=== PATIENT | female | born 2000 | race Hispanic/Latino ===

== ENCOUNTER → 2025-06-13 08:32 | Outpatient (CLI) | payer OTHER, SELFPAY ==
[2025-06-13 10:28] LABS: Glucose Fasting Gestational 78 mg/dL (76-95)
[2025-06-13 11:21] LABS: Glucose 1 Hour Gest 132 mg/dL (76-180)
[2025-06-13 12:02] LABS: Glucose Tol Interp,Gestational INTERPRETATION
[2025-06-13 12:38] LABS: Glucose 2 Hour Gest 144 mg/dL (76-155)
[2025-06-13 12:39] LABS: Glucose 3 Hour Gest 138 mg/dL (76-140)
== END ==
PROVIDERS: PCP Family Medicine; Referring Provider Family Medicine; Visit Provider Family Medicine
DX: O30.001 Twin pregnancy, unspecified number of placenta and unspecified number of amniotic sacs, first trimester (principal); R73.09 Other abnormal glucose; R73.03 Prediabetes
CPT/HCPCS: 36415; 82951; 82952

== ENCOUNTER → 2025-06-27 13:46 | Outpatient (CLI) | payer OTHER, SELFPAY ==
[2025-06-27 15:53] LABS: Natera Collection Specimen Collected
--- NOTE | 2025-06-27 16:44 | DIET.OUTPTC ---
Dietary Outpatient Consult Consult Date:06/27/25 Assessment:?24 y F referred to dietitian for prediabetes, twin , obesity Presents to learn more about creating balanced meals and getting enough nutrients from diet. Has been having night time nausea. Helpful to always keep stomach full. Will do 2 saltine crackers between meals. Difficult time with nothing sounding good. Lost 10 lb since last doctors appt. GI symptoms: denies D/C, BM daily Diet Recall: B-bagel and cream cheese saltines L-bagel and cream cheese D-6 oz meat/pork, veggies, 2/3 c starch, [address] ancelmo saltines and cheese Fluids: water, got apple cider recently doing 1/2 c in morning Activity:wants to walk dog daily Pertinent Labs:5.6% A1c, normal GTT Nutrition Diagnosis:? Food and nutrient related knowledge deficit r/t limited previous formal educ, new with twins aeb presents to learn about preventing GDM and creating nutrient dense meals Increased nutrient needs (protein/folic acid/iron) r/t increased demand for nutrient aeb with twins Interventions:? Discussed and provided appropriate resources on the following: -Carb consistent meals using the plate method, common measurements, briefly reviewed CHO counting and label reading based on pt interest -Importance of pairing with protein and fiber -Eating snacks -Reducing sugar sweetened beverages -Activity as tolerated Goals: -Add protein source to breakfast: ex- nut butter or 1/2 to whole [employer] protein shake -Add 1-2 snacks in daily between lunch/dinner - i.e. plain italian yogurt (pt's preference)+ 1/4 c granola + 1/2c to 1 cup fruit or olives and cheese -Reduce dr pepper to 1-2x/wk and sub with sparkling water -Walk with dog 3x/wk EER:? 16-18 CHO servings (40% kcals) Monitoring/Evaluations:? F/u in 4-6 wks Electronically Signed by: Karyna Singh Clinical Dietitian [address] [id number]
== END ==
LOC: DIET 13:48
PROVIDERS: PCP Family Medicine; Referring Provider Family Medicine
DX: O30.009 Twin pregnancy, unspecified number of placenta and unspecified number of amniotic sacs, unspecified trimester (principal); R73.03 Prediabetes; O99.210 Obesity complicating pregnancy, unspecified trimester; E66.9 Obesity, unspecified; Z71.3 Dietary counseling and surveillance
CPT/HCPCS: 36415

== ENCOUNTER → 2025-07-30 13:04 | Outpatient (CLI) | payer OTHER, SELFPAY ==
[2025-07-30 13:55] LABS: COVID-19 CEPHEID 4-PLEX PCR Negative (Negative); Influenza A - CEPHEID Flu A NEGATIVE (NEGATIVE); Influenza B - CEPHEID Flu B NEGATIVE (NEGATIVE)
== END ==
PROVIDERS: PCP Family Medicine; Visit Provider Nurse Practitioner Family
DX: J02.9 Acute pharyngitis, unspecified (principal); R05.1 Acute cough
CPT/HCPCS: 87070; 87637

== ENCOUNTER → 2025-09-11 14:44 | Outpatient (CLI) | payer OTHER, SELFPAY | PROVIDERS: PCP Family Medicine; Referring Provider Family Medicine; Visit Provider Family Medicine | DX: O30.041 Twin pregnancy, dichorionic/diamniotic, first trimester (principal) | CPT/HCPCS: 36415; 82105 ==